=== PATIENT | female | born 1990 | race Two or more races ===

== ENCOUNTER 2017-04-06 22:08 | Emergency (ER) | payer OTHER ==
[2017-04-06 22:36] VITALS: BP 101/65
--- NOTE | 2017-04-06 23:00 | PHYS DOC ---
Past Medical History Past Medical History: No Pertinent History Past Surgical History: No Surgical History Alcohol Use: None Drug Use: None Adult General Chief Complaint Chief Complaint: ANKLE PROBLEM HPI HPI Patient is a 26 year old female who presents with complaint of right ankle pain after suffering an injury yesterday. Patient states that she is playing volleyball when she had jumped up in the air. She came down, she states that she landed on another player's foot which caused her own foot to invert. Patient states that she felt pain to her right ankle but states that she was immediately able to stand and bear weight on the affected foot. Patient states that she was also able to ambulate. Patient states that today she has had worsening swelling to her ankle and has had difficulty being able to bear full weight. Patient states that she has been using a pair of crutches that belonged to her brother to try to help with ambulation. Patient states that she is currently 8 weeks and her first visit is pending at this time. Patient denies any pelvic pain, cramping, or vaginal bleeding. Patient rates pain as 8 out of 10 with weightbearing. Review of Systems Review of Systems Constitutional: Denies fever or chills [] Eyes: Denies change in visual acuity, redness, or eye pain [] HENT: Denies nasal congestion or sore throat [] Respiratory: Denies cough or shortness of breath [] Cardiovascular: Denies chest pain or edema[] GI: Denies abdominal pain, nausea, vomiting, bloody stools or diarrhea [] : Denies dysuria or hematuria [] Musculoskeletal: Right ankle injury[] Integument: Denies rash or skin lesions [] Neurologic: Denies headache, focal weakness or sensory changes [] Current Medications Current Medications Current Medications Medications (Trade) Dose Ordered Sig/[facility] Start Time Stop Time Status Last Admin Dose Admin Acetaminophen (Tylenol) 1,000 mg 1X ONCE 04/06/17 23:15 04/06/17 23:16 04/06/17 23:05 1,000 MG Allergies Allergies Allergies Coded Allergies Type Severity Reaction Last Updated Verified No Known Drug Allergies 04/06/17 No No known drug allergies Physical Exam Physical Exam Constitutional: Well developed, well nourished, no acute distress, non-toxic appearance. [] HENT: Normocephalic, atraumatic, bilateral external ears normal, oropharynx moist, no oral exudates, nose normal. [] Skin: Warm, dry, no erythema, no rash. [] Back: No tenderness, no CVA tenderness. [] Extremities: Moderate soft tissue swelling along lateral malleolus, ecchymosis present along lateral joint space right ankle, no malleolus tenderness to palpation, negative squeeze test, tenderness palpation along right anterior lateral joint space of right ankle, no ankle instability. [] Neurologic: Alert and oriented X 3, normal motor function, normal sensory function, no focal deficits noted. [] Current Patient Data Vital Signs Vital Signs Date Time Temp Pulse Resp B/P (MAP) Pulse Ox O2 Delivery O2 Flow Rate FiO2 04/06/17 22:36 99.0 124 22 99 Room Air 99.0 EKG EKG Not performed[] Radiology/Procedures Radiology/Procedures Not performed[] Course & Med Decision Making Course & Med Decision Making Pertinent Labs and Imaging studies reviewed. (See chart for details) [place] ankle rules applied to the patient's exam. Based off of clinical tool, x- rays are not indicated at this time. Given the patient is currently in first trimester , reduction of radiation exposure is ideal. The patient's exam appears consistent with acute ankle sprain. Patient's right ankle was placed in an Tanner wrap and patient also had an Aircast applied to the right ankle. Patient was given proper fitting crutches in the emergency department and patient treated with oral Tylenol. Advised follow-up in one week for reevaluation. Advised return emergency department for any worsening symptoms. Patient voiced understanding and in agreement with treatment plan. Dragon Disclaimer Dragon Disclaimer This electronic medical record was generated, in whole or in part, using a voice recognition dictation system. Departure Departure Impression: Primary Impression: Right ankle sprain Disposition: HOME, SELF-CARE Condition: IMPROVED Patient Instructions: Ankle Sprain, RICE - Routine Care for Injuries Additional Instructions: Follow-up with your primary doctor in 1 week for reevaluation. You may bear weight on your right foot as tolerated. Return to the emergency department for any worsening symptoms. Problem Qualifiers Primary Impression: Right ankle sprain Encounter type: initial encounter Involved ligament of ankle: unspecified ligament Qualified Codes: S93.401A - Sprain of unspecified ligament of right ankle, initial encounter RYAN ROMO MD Apr 06, 2017 23:00
[2017-04-06] MEDS ORDERED: ACETAMINOPHEN 500 MG TABLET PO ONE (23:15)
== END 2017-04-06 23:24 | disposition home or self-care (01) ==
LOC: ER 22:08
DX: S93.401A Sprain of unspecified ligament of right ankle, initial encounter (principal); X58.XXXA Exposure to other specified factors, initial encounter; Y93.68 Activity, volleyball (beach) (court); Y92.89 Other specified places as the place of occurrence of the external cause; Y99.8 Other external cause status
CPT/HCPCS: 29515; 99283-25